=== PATIENT | female | born 1985 | race American Indian/Alaskan Native ===

== ENCOUNTER 2016-06-20 08:47 | Emergency (ER) | payer OTHER ==
[~2016-06-20] VITALS: Ht 162.6 cm; Wt 70.3 kg
[2016-06-20 08:50] VITALS: BP 141/77; TEMP 98.6
[2016-06-20 09:13] LABS: PLATELET COUNT 383 K/uL (152-353)
[2016-06-20 09:38] LABS: POTASSIUM 3.5 mmol/L (3.6-5.2); SODIUM 135 mmol/L (136-145)
== END 2016-06-20 10:00 | disposition home or self-care (01) ==
LOC: ED 08:47
DX: K29.70 Gastritis, unspecified, without bleeding (principal); B96.81 Helicobacter pylori [H. pylori] as the cause of diseases classified elsewhere
CPT/HCPCS: 36415; 80053; 81000; 82150; 83690; 85027; 86318; 99283

== ENCOUNTER 2016-07-28 14:45 | Emergency (ER) | payer OTHER ==
[~2016-07-28] VITALS: Ht 162.6 cm; Wt 72.6 kg
[2016-07-28 15:53] LABS: PLATELET COUNT 426 K/uL (152-353)
[2016-07-28 16:10] LABS: POTASSIUM 3.3 mmol/L (3.6-5.2); SODIUM 139 mmol/L (136-145)
[2016-07-28 16:47] VITALS: BP 122/86; TEMP 98
== END 2016-07-28 16:50 | disposition home or self-care (01) ==
LOC: ED 14:45
DX: N93.8 Other specified abnormal uterine and vaginal bleeding (principal); N94.6 Dysmenorrhea, unspecified; N39.0 Urinary tract infection, site not specified
CPT/HCPCS: 36415; 80053; 81000; 81025; 84702; 85027; 87088; 96372; 99283; J1885

== ENCOUNTER 2016-10-13 22:27 | Emergency (ER) | payer OTHER ==
[~2016-10-13] VITALS: Ht 162.6 cm; Wt 72.6 kg
[2016-10-13 23:58] LABS: PLATELET COUNT 416 K/uL (152-353)
[2016-10-14 02:43] VITALS: BP 123/71; TEMP 98.4
== END 2016-10-14 02:45 | disposition home or self-care (01) ==
LOC: ED 22:27
DX: N83.202 Unspecified ovarian cyst, left side (principal)
CPT/HCPCS: 36415; 81000; 81025; 85027; 99283; Q9963

== ENCOUNTER 2016-12-04 10:15 | Emergency (ER) | payer OTHER ==
[~2016-12-04] VITALS: Ht 152.4 cm; Wt 72.6 kg
[2016-12-04 11:25] VITALS: BP 120/89; TEMP 98
== END 2016-12-04 11:27 | disposition home or self-care (01) ==
LOC: ED 10:15
DX: N63 Unspecified lump in breast (principal)
CPT/HCPCS: 99282

== ENCOUNTER 2017-01-16 17:19 | Emergency (ER) | payer OTHER ==
[~2017-01-16] VITALS: Ht 162.6 cm; Wt 70.8 kg
[2017-01-16 17:25] VITALS: BP 125/83; TEMP 98.8
== END 2017-01-16 17:45 | disposition home or self-care (01) ==
LOC: ED 17:19
DX: K08.89 Other specified disorders of teeth and supporting structures (principal)
CPT/HCPCS: 99281

== ENCOUNTER 2017-09-22 01:27 | Emergency (ER) | payer OTHER ==
[~2017-09-22] VITALS: Ht 162.6 cm; Wt 67.1 kg
[2017-09-22 02:04] VITALS: BP 133/82; TEMP 97.7
== END 2017-09-22 02:06 | disposition home or self-care (01) ==
LOC: ED 01:27
DX: K64.4 Residual hemorrhoidal skin tags (principal)
CPT/HCPCS: 99282

== ENCOUNTER 2017-12-24 07:18 | Emergency (ER) | payer OTHER ==
[~2017-12-24] VITALS: Ht 154.9 cm; Wt 68.5 kg
[2017-12-24 07:28] VITALS: BP 138/88; TEMP 99.1
== END 2017-12-24 08:40 | disposition home or self-care (01) ==
LOC: ED 07:18
DX: R10.32 Left lower quadrant pain (principal); R10.31 Right lower quadrant pain
CPT/HCPCS: 99281

== ENCOUNTER 2020-01-08 17:11 | Emergency (ER) | payer OTHER ==
[~2020-01-08] VITALS: Ht 154.9 cm; Wt 72.6 kg
[2020-01-08 17:18] VITALS: BP 130/86; TEMP 98.9
== END 2020-01-08 18:20 | disposition home or self-care (01) ==
LOC: ED 17:11
PROC: 0HQFXZZ Repair Right Hand Skin, External Approach (ICD-10-PCS; principal; 2020-01-08)
DX: S61.411A Laceration without foreign body of right hand, initial encounter (principal); W26.0XXA Contact with knife, initial encounter; Y92.098 Other place in other non-institutional residence as the place of occurrence of the external cause
CPT/HCPCS: 90471; 90715; 99283

== ENCOUNTER 2020-04-28 22:40 | Emergency (ER) | payer OTHER ==
[~2020-04-28] VITALS: Ht 33 cm; Wt 0.5 kg
[2020-04-28 22:40] VITALS: TEMP 98.1
[2020-04-28 23:20] LABS: PLATELET COUNT 428 K/uL (152-353)
[2020-04-28 23:25] LABS: SODIUM 137 mmol/L (136-145)
[2020-04-29 00:10] LABS: PARTIAL THROMBOPLASTIN TIME 23.4 SECONDS (24.5-33.6)
[2020-04-29 00:42] VITALS: BP 134/85
== END 2020-04-29 00:55 | disposition home or self-care (01) ==
LOC: ED 22:40
PROVIDERS: Hospitalist
DX: T40.601A Poisoning by unspecified narcotics, accidental (unintentional), initial encounter (principal); E87.6 Hypokalemia; Y92.89 Other specified places as the place of occurrence of the external cause
CPT/HCPCS: 36415; 80053; 80307; 80320; 80329; 81000; 81025; 82550; 83880; 84484; 85027; 85610; 85730; 93005; 96360; 99284

== ENCOUNTER 2020-09-25 08:31 | Emergency (ER) | payer OTHER ==
[~2020-09-25] VITALS: Ht 162.6 cm; Wt 73.9 kg
[2020-09-25 08:36] VITALS: BP 134/93; TEMP 98.3
== END 2020-09-25 09:25 | disposition home or self-care (01) ==
LOC: ED 08:31
DX: L02.412 Cutaneous abscess of left axilla (principal)
CPT/HCPCS: 96372; 99283; J0696; J1885